=== PATIENT | male | born 1965 | race American Indian/Alaskan Native ===

== ENCOUNTER 2019-05-27 10:05 | Day surgery (SDC) | payer OTHER ==
--- NOTE | 2019-05-27 09:56 | Anesthesia Day of Surgery ---
Anesthesia Day of Surgery - Day of Surgery Patient Examined: Yes Patient H&P Reviewed: Yes Patient is NPO: Yes
--- NOTE | 2019-05-27 09:57 | Anesthesia Consultation ---
Anesthesia Consult and Med Hx Date of service: 05/27/19 - Airway Anesthetic Teeth Evaluation: Good ROM Head & Neck: Adequate Mental/Hyoid Distance: Adequate Mallampati Class: Class I Intubation Access Assessment: Probably Good - Pulmonary Exam CTA: Yes - Cardiac Exam Cardiac Exam: RRR - Pre-Operative Health Status ASA Pre-Surgery Classification: ASA2 Proposed Anesthetic Plan: MAC
[~2019-05-27 10:05] MED LIST: NACL 0.9% 1000 ML 1,000 ML IV SCH
[2019-05-27] MEDS ORDERED: XYLOCAINE MPF 2% ONE (12:00)
[2019-05-27] MEDS ORDERED: DIPRIVAN 10 MG/ML IV ONE ×2 (12:37)
--- NOTE | 2019-05-27 13:10 | Discharge Summary ---
Short Stay Discharge Plan Activity: advance as tolerated Weight Bearing Status: Weight Bear as Tolerated Diet: regular Follow up with: PRIMARY CARE, [Primary Care Provider] - 7 Days
--- NOTE | 2019-05-27 13:10 | Operative Report ---
Operative Report Operative Report: Date of procedure: 05/27/2019 Procedure: Colonoscopy with Hot Biopsy Polypectomy. Attending physician: Cortez Rodriguez MD Electric Welder Helper: Cortez Rodriguez MD Indication: Patient is a 53-year-old male who presents for colonoscopy for colorectal cancer screening. He also has family history of colon cancer. A col onoscopy serves to evaluate patient so that treatment may be directed based on the findings. Consent: Informed consent was obtained after advising the patient and family regarding nature of this procedure, its indications, potential benefits as well as possible complications including but not limited to bleeding perforation and adverse reaction to medication, infection as well as other cardiopulmonary complications. An informed written and verbal consent was then obtained after due opportunity was provided for questions and answers. Monitoring: Patient was monitored continuously with pulse oximetry and electrocardiographic recordings as well as blood pressure recordings. Vital signs remained stable throughout this procedure with no untoward events. Preoperative assessment: Patient was assessed immediately prior to this procedure for capacity to tolerate monitored anesthesia care and moderate sedation as well as general anesthesia. Patient's ASA classification is 2, Mallampati class is 2, Hyomental distance is 3. Instrument: Olympus video colonoscope Medications: Propofol given intravenously in divided doses. For details please refer to anesthesia records. Description of procedure: Patient was placed in the left lateral decubitus position after achieving sedation, a digital rectal examination was performed following which the colonoscope was introduced into the anal verge and advanced to the cecum which was identified by the ileocecal valve, the appendiceal orifice, as well as by the cecal strap and direct transillumination. The colonoscope was subsequently withdrawn with careful inspection of all mucosal surfaces. Patient tolerated this procedure well and was subsequently taken to the recovery room. The following findings were noted. Findings: The preparation was adequate. Patient had a sessile 6 mm polyp in the transverse colon which was removed by hot biopsy polypectomy. On the retroflex view at the anal verge, patient had internal hemorrhoids. Impression:6 mm polyp in the transverse colon status post hot biopsy polypectomy Internal hemorrhoids. Plan: Follow pathology report High-fiber diet. Repeat colonoscopy in 5 years.
[2019-05-27 13:32] VITALS: BP 95/44
== END 2019-05-27 10:06 | disposition home or self-care (01) ==
LOC: GIO 10:05 → EDBD 10:05 → GIO 10:06
PROVIDERS: ATTEND Internal Medicine Gastroenterology
DX: D12.3 Benign neoplasm of transverse colon (principal); K64.8 Other hemorrhoids; Z80.0 Family history of malignant neoplasm of digestive organs; Z83.71 Family history of colonic polyps
CPT/HCPCS: 45384; 88305; J2704; J7030